=== PATIENT | female | born 1985 | race Caucasian/White ===

== ENCOUNTER 2018-02-08 12:11 | Emergency (ER) | payer SELFPAY ==
[~2018-02-08] VITALS: Ht 162.6 cm; Wt 116.0 kg
[2018-02-08 14:44] VITALS: BP 126/86
== END 2018-02-08 14:47 | disposition home or self-care (01) ==
LOC: ER 12:11
DX: J45.909 Unspecified asthma, uncomplicated (principal)
CPT/HCPCS: 99283